=== PATIENT | male | born 1970 | race Caucasian/White ===

== ENCOUNTER 2016-05-04 15:40 | Emergency (ER) | payer MEDICAID ==
[2016-05-04] MEDS ORDERED: NEB-ALBUTEROL 2.5 MG/3 ML INH ONE (18:28)
[2016-05-04] MEDS ORDERED: DUONEB INH ONE (18:28)
[2016-05-04] MEDS ORDERED: PREDNISONE 10 MG TAB ONE (18:41)
[2016-05-04] MEDS ORDERED: PREDNISONE 50 MG TAB ONE (18:42)
== END 2016-05-04 20:23 | disposition home or self-care (01) ==
LOC: ER 15:40
CPT/HCPCS: 71020; 94640